=== PATIENT | female | born 1995 | race Caucasian/White ===

== ENCOUNTER 2019-06-11 22:09 | Emergency (ER) | payer OTHER ==
[~2019-06-11] VITALS: Ht 165.1 cm; Wt 79.3 kg
[~2019-06-11 22:09] MED LIST: PREN-39 PO
[2019-06-11 22:11] VITALS: Ht 165.1 cm; Wt 79.3 kg
[2019-06-12 01:27] VITALS: BP 118/68; PULSE 66; RESP 17
== END 2019-06-12 01:27 | disposition home or self-care (01) ==
LOC: FTE 22:09
DX: O26.891 Other specified pregnancy related conditions, first trimester (principal); R10.30 Lower abdominal pain, unspecified; R10.2 Pelvic and perineal pain; Z3A.01 Less than 8 weeks gestation of pregnancy
CPT/HCPCS: 36415; 76801; 76817; 81001; 81025; 84702; 85025; Z7502